=== PATIENT | female | born 1945 | race Two or more races ===

== ENCOUNTER 2024-01-16 13:50 | Emergency (ER) | payer MEDICARE ==
[~2024-01-16] VITALS: Ht 170.2 cm; Wt 68.0 kg
[2024-01-16 13:54] VITALS: O2SAT 97
[2024-01-16 14:43] LABS: BASOPHILS % 0.6 % (0.0-2.0); EOSINOPHILS % 1.7 % (0.0-5.0); HEMATOCRIT. 36.5 % (36.0-48.0); HEMOGLOBIN. 12.1 g/dL (12.0-16.0); LYMPHOCYTES % 22.9 % (20.0-50.0); MEAN CORPUSCULAR HEMOGLOBIN 28.3 pg (28.0-32.0); MEAN CORPUSCULAR HGB CONC 33.3 g/dL (31.0-37.0); MEAN CORPUSCULAR VOLUME 84.9 fL (81.0-99.0); MEAN PLATELET VOLUME 7.4 fl (7.4-10.4); MONOCYTES % 7.9 % (2.0-8.0); NEUTROPHILS % 66.9 % (40.0-76.0); PLATELET 260 x1000/uL (130-400); RED BLOOD CELL COUNT 4.29 mill/uL (4.2-5.4); WHITE BLOOD COUNT 10.4 x1000/uL (4.5-11.0)
[2024-01-16] MEDS: SODIUM CHLORIDE 0.9% 1,000 ML IV ONE (14:48)
[2024-01-16 14:49] LABS: CHLORIDE 105 mEq/L (98-107); POTASSIUM 3.8 mEq/L (3.5-5.1); SODIUM 139 mEq/L (136-145)
[2024-01-16 14:50] LABS: CALCIUM 9.4 mg/dL (8.7-10.4); CARBON DIOXIDE 26 mEq/L (21-32)
[2024-01-16 14:55] LABS: CREATININE 1.3 mg/dL (0.6-1.0); GLUCOSE 218 mg/dL (70-105); PARTIAL THROMBOPLASTIN TIME 25.1 sec (23.4-31.0); PROTHROMBIN TIME 11.4 sec (9.6-11.0); UREA NITROGEN BLOOD 26 mg/dL (9-23)
[2024-01-16 14:57] LABS: ALANINE AMINOTRANSFERASE 9 IU/L (10-49); ALBUMIN 4.2 g/dL (3.2-4.8); ASPARTATE AMINOTRANSFERASE 20 IU/L (<34); BILIRUBIN DIRECT 0.4 mg/dL (<=3.0); BILIRUBIN TOTAL 1.3 mg/dL (0.1-1.0); PROTEIN TOTAL 7.1 g/dL (6.0-8.3)
[2024-01-16 15:01] LABS: TROPONIN I HIGH SENSITIVITY < 4 ng/L (3.0-34)
[2024-01-16] MEDS: CEFTRIAXONE 2GM/50ML 50 ML IV ONE (16:45)
[2024-01-16] MEDS: METRONIDAZOLE 500 MG PREMIX 100 ML IV ONE (17:27)
[2024-01-16 17:40] LABS: GLUCOSE URINE 1+ (NEGATIVE); KETONES URINE NEGATIVE (NEGATIVE)
[2024-01-16] MEDS ORDERED: LACT1CAP78 MT (18:11)
[2024-01-16] MEDS ORDERED: METR-167 MT (18:11)
[2024-01-16] MEDS ORDERED: CIPR500T5 MT (18:11)
[2024-01-16 18:15] VITALS: BP 127/70; PULSE 60; RESP 17; TEMP 36.78072; O2SAT 98
[2024-01-16 18:16] LABS: TROPONIN I HIGH SENSITIVITY < 4 ng/L (3.0-34)
[2024-01-16 18:40] LABS: CLARITY URINE CLEAR (CLEAR); COLOR URINE YELLOW (YELLOW); LEUKOCYTE ESTERASE URINE 1+ (NEGATIVE); NITRITE URINE NEGATIVE (NEGATIVE); OCCULT BLOOD URINE NEGATIVE (NEGATIVE); PH URINE 7.5 (4.5-8.0); PROTEIN URINE NEGATIVE (NEGATIVE); SPECIFIC GRAVITY URINE 1.007 (1.005-1.030); UROBILINOGEN URINE 0.2 E.U./dL (0.2-1.0)
[2024-01-16 18:41] LABS: BACTERIA URINE NONE SEEN; RBC URINE NONE SEEN /hpf (0-2); SQUAMOUS EPITHELIAL CELL URINE NONE SEEN /lpf (RARE/1+); WBC URINE 0-2 /hpf (0-2)
== END 2024-01-16 18:57 | disposition home or self-care (01) ==
LOC: ER 13:50
DX: R55 Syncope and collapse (principal); R53.1 Weakness; R42 Dizziness and giddiness; E11.9 Type 2 diabetes mellitus without complications; I10 Essential (primary) hypertension; K57.30 Diverticulosis of large intestine without perforation or abscess without bleeding
CPT/HCPCS: 99285; 74176; 96365; 96361; 71045; 96367; 80076; 80048; 81003; 83880; 83605; 83690; 85025; 85610; 85730; 86850; 86900; 86901; 87040; 84484; 36415; 84145; 93005; J0696; J3490; J7030; C1893